=== PATIENT | male | born 1970 | race Caucasian/White ===

== ENCOUNTER → 2017-06-01 | Outpatient (CLI) | payer BC ==
[~2017-06-01] MED LIST: AMITRIPTYLINE H25 MG PO; AMLODIPINE-BEN1 EACH PO; CRESTOR20 MG PO; ULTRAM50 MG PO
--- NOTE | 2017-06-01 15:06 | Diagnostic Imaging Report ---
History: No injuries. Low back pain radiating to both legs Comparison studies: None Technique: Sagittal, coronal and axial T2 , sagittal T1 and IR, axial spin density oblique. Intravenous contrast: None Findings: Number of lumbar vertebral bodies:5 Alignment: Grade 1 anterolisthesis of L4 over L5 and L5 over S1.No scoliosis. Soft tissues: No T2 hyperintense inflammatory changes. Paraspinal muscles: Mild fatty infiltration of the lumbosacral junction. Lower thoracic cord:Normal in signal and morphology. The tip of the conus is at T12-L1. Cauda equina: No masses. No arachnoiditis. Surgical changes: Posterior the compression with bilateral laminectomies, intervertebral spacer and posterior fusion at L5-S1. Vertebrae: Normal in height and signal intensity. No compression fractures, infection or neoplasm. Degenerative changes: L1-L2: No abnormalities. L2-L3: No abnormalities. L3-L4: No abnormalities. L4-L5: Disc degeneration with loss of T2 signal. Diffuse disc bulge and moderate facet hypertrophy without canal stenosis and moderate to severe bilateral foraminal narrowing. L5-S1: Moderate bilateral facet hypertrophy with patent canal and moderate bilateral foraminal narrowing. Additional findings: None IMPRESSION: Laminectomy changes, intervertebral spacer and posterior fusion at L5-S1. Evaluation limited at this level secondary to blooming artifact Moderate to severe bilateral foraminal narrowing at L4-L5 secondary to diffuse bulge and moderate facet hypertrophy. Moderate bilateral foraminal narrowing at L5-S1 secondary to moderate facet hypertrophy. Patent canal Signed by: DR Mariusz Shi M.D. on 06/01/2017 3:02 PM
== END ==
LOC: MRI 12:35
PROVIDERS: ATTEND Internal Medicine
DX: M54.16 Radiculopathy, lumbar region (principal)
CPT/HCPCS: 72148

== ENCOUNTER → 2017-06-28 | Outpatient (CLI) | payer BC ==
--- NOTE | 2017-06-28 18:50 | Diagnostic Imaging Report ---
PROCEDURE:L-SPINE AP AND LAT WITH FLEX AND EXT. COMPARISON:Patients [facility], CT, CT LUMBAR SPINE WO, 06/28/2017, 16:22. INDICATIONS:LUMBAR SPONDYLOLISTHESIS FINDINGS: There are 5 lumbar-type vertebral bodies. Status post posterior fusion of L5-S1 with bilateral interpedicular screws and intervening extension rods an intervertebral disc spacer. Orthopedic hardware is intact. Apparent grade 1 anterolisthesis of L4 on L5, which does not change in flexion and extension views (which is not clearly seen on CT performed same date). No lytic or blastic lesions. L5 laminectomy CONCLUSION: Status post posterior fusion L5-S1 with intact hardware. No change in alignment during flexion and extension views. Ky Ragland M.D. Dictated by: Ky Ragland M.D. on 06/28/2017 at 18:50 Electronically approved by: Ky Ragland M.D. on 06/28/2017 at 18:50
--- NOTE | 2017-06-30 16:24 | Diagnostic Imaging Report ---
History: Low back pain Comparison studies: MRI 06/01/2017 Technique: Axial images were obtained through the lumbar spine from T12. Coronal and sagittal images reconstructed from the axial data. Intravenous contrast: None Findings: Number of non-rib bearing vertebral bodies: 5 Alignment: Grade 1 anterolisthesis L5 on S1 Soft tissues: No abnormalities. Paraspinal muscles: Unremarkable. Sacroiliac joints: No degenerative changes. Vertebrae: No fractures, infection or neoplasm. Degenerative changes: L1-L2: Mild loss of disc height. Stable mild symmetric bulging disc with less than 1 mm posterior mass effect. Osseous boundary of the foramen and spinal canal widely patent. L2-L3: No abnormalities. L3-L4: No abnormalities. L4-L5: Vacuum disc phenomena with loss of disc height. Symmetric bulging disc better visualized on MRI. 4 mm posterior mass effect. Osseous boundaries of spinal canal widely patent. Bilateral foramen with moderate narrowing. L5-S1: Postoperative changes are noted from a laminectomy and fusion. Hardware appears intact without evidence of loosening. Osseous contours of the foramen demonstrate mild narrowing, right greater than left. IMPRESSION: 1. Postoperative changes from L5 to S1 laminectomy and fusion without evidence of complication. Signed by: Dr. Chucky Garcia M.D. on 06/30/2017 4:21 PM
== END ==
LOC: CT 15:37
PROVIDERS: ATTEND Neurological Surgery
DX: M43.16 Spondylolisthesis, lumbar region (principal)
CPT/HCPCS: 72110; 72131

== ENCOUNTER → 2017-10-13 | Outpatient (CLI) | payer BC ==
--- NOTE | 2017-10-13 13:18 | Diagnostic Imaging Report ---
PROCEDURE:L-SPINE AP AND LAT WITH FLEX AND EXT. COMPARISON:Patients [facility], DX, SP LUM AP/LAT/FLEX/EXT MIN 4VW, 06/28/2017, 16:01. INDICATIONS:LUMBAR SPONDYLOLITHESIS FINDINGS: There are 5 lumbar-type vertebral bodies with S1 being a transitional vertebral body. The patient is status post posterior fusion at L5 and S1 with bilateral interpedicular screws and fixing rods. Disc spacers are also present. Lateral neutral, flexion and extension views show no evidence of movement or slippage. The hardware appears intact. CONCLUSION: Status post surgical changes without evidence of slippage or hardware failure. Mateus Dodge D.O. Dictated by: Mateus Dodge D.O. on 10/13/2017 at 13:23 Electronically approved by: Mateus Dodge D.O. on 10/13/2017 at 13:23
== END ==
LOC: RAD 09:31
PROVIDERS: ATTEND Neurological Surgery
DX: M43.16 Spondylolisthesis, lumbar region (principal); Z98.1 Arthrodesis status
CPT/HCPCS: 72110

== ENCOUNTER 2017-11-28 06:46 | Emergency (ER) | payer BC ==
[~2017-11-28] VITALS: Ht 175.3 cm; Wt 81.6 kg
--- NOTE | 2017-11-28 07:33 | Diagnostic Imaging Report ---
PROCEDURE:X-RAY RIGHT FOOT, COMPLETE COMPARISON:None. INDICATIONS:RIGHT GREAT TOE PAIN FINDINGS: There are no fractures, dislocations, lytic or blastic lesions. No bony erosions. The bones are well-mineralized. The soft-tissues are unremarkable. CONCLUSION: Normal right foot radiograph. Mateus Dodge D.O. Dictated by: Mateus Dodge D.O. on 11/28/2017 at 7:33 Electronically approved by: Mateus Dodge D.O. on 11/28/2017 at 7:33
[2017-11-28] MEDS ORDERED: COLCHICINE 0.6 MG TAB PO STA ×2 (07:50→08:43)
[2017-11-28 08:30] LABS: ANION GAP 13.3 mmol/L (8-16); BLOOD UREA NITROGEN 13 mg/dL (7-26); BUN/CREATININE RATIO 15 (6-25); CALCIUM 9.2 mg/dL (8.4-10.2); CARBON DIOXIDE 25 mmol/L (22-29); CHLORIDE 101 mmol/L (98-107); CREATININE, SERUM 0.89 mg/dL (0.72-1.25); EST GLOMERULAR FILTRATION RATE > 60 ML/MIN (60-); GLUCOSE 95 mg/dL (74-118); POTASSIUM 4.3 mmol/L (3.5-5.1); SODIUM 135 mmol/L (136-145)
--- OUTSIDE RECORDS SUMMARY | 2018-01-12 03:10 | XMS REPORT ---
Author Author [facility] Address Unknown Phone Unavailable Care Team Providers Care Grill Cook Name Role Phone KIM AMES Unavailable Unavailable JENNIFER SCHULER Unavailable Unavailable ADDIE DEUTSCH Unavailable Unavailable Problems This patient has no known problems. Allergies, Adverse Reactions, Alerts This patient has no known allergies or adverse reactions. Medications This patient has no known medications. Results Test Description Test Time Test Comments Text Results Atomic Results Result Comments FOOT RIGHT COMPLETE 2017-11-28 07:39:00 [place] [address] Patient Name: CRISTA MOREAU MR #: [id number] : 1970 Age/Sex: 47/M Req #: [id number] Adm Physician: Ordered by: KIM AMES MD Report #: [id number] Location: ER Room/Bed: _ Procedure: [id number] DX/FOOT RIGHT COMPLETE Exam Date: 11/28/17 Exam Time: 0705 REPORT STATUS: Signed PROCEDURE: X- RAY RIGHT FOOT, COMPLETE COMPARISON: None. INDICATIONS: RIGHT GREAT TOE PAIN FINDINGS: There are no fractures, dislocations, lytic or blastic lesions. No bony erosions. The bones are well-mineralized. The soft-tissues are unremarkable. CONCLUSION: Normal right foot radiograph. Iglesia Dodge D.O. Dictated by: Iglesia Dodge D.O. on 11/28/2017 at 7:33 Electronically approved by: Iglesia Dodge D.O. on 11/28/2017 at 7:33 Dictated By: IGLESIA DODGE DO 8 Transcribed By: QUETA on 11/28/17738 COPY TO: KIM AMES MD SP LUM AP/LAT/FLEX/EXT MIN 4VW 2017-10-13 13:23:00 [place] [address] Patient Name: RCISTA MOREAU MR #: [id number] : 1970 Age/Sex: 47/M Req #: [id number] [facility] Physician: Ordered by: JENNIFER SCHLUER MD Report #: [id number] Location: [facility] Room/Bed: Procedure: [id number] DX/SP LUM AP/LAT/FLEX/EXT MIN 4VW Exam Date : 10/13/17 Exam Time: 0950 REPORT STATUS: Signed PROCEDURE: L-SPINE AP AND LAT WITH FLEX AND EXT. COMPARISON: [facility], DX, SP LUM AP/LAT/FLEX/EXT MIN 4VW, 06/28/2017, 16: 01. INDICATIONS: LUMBAR SPONDYLOLITHESIS FINDINGS: There are 5 lumbar-type vertebral bodies with S1 being a transitional vertebral body. The patient is status post posterior fusion at L5 and S1 with bilateral interpedicular screws and fixing rods. Disc spacers are also present. Lateral neutral, flexion and extension views show no evidence of movement or slippage. The hardware appears intact. CONCLUSION: Status post surgical changes without evidence of slippage or hardware failure. Iglesia Dodge D.O. Dictated by: Iglesia Dodge D.O. on 10/13/2017 at 13:23 Electronically approved by: Iglesia Dodge D.O. on 10/13/2017 at 13:23 Dictated By: IGLESIA DODGE DO 1323 Transcribed By: QUETA on 10/13/17 1323 COPY TO: JENNIFER SCHULER MD SP LUM AP/LAT/FLEX/EXT MIN 4VW [place] [address] Patient Name: CRISTA MOREAU MR #: [id number] : 1970 Age/Sex: 47/M Req #: [id number] Adm Physician: Ordered by: JENNIFER SCHULER MD Report #: [id number] Location: CT Room/Bed: _ Procedure: [id number] DX/SP LUM AP/LAT/FLEX/EXT MIN 4VW Exam Date: Exam Time: 1601 REPORT STATUS: Signed PROCEDURE: L-SPINE AP AND LAT WITH FLEX AND EXT. COMPARISON: [facility], CT, CT LUMBAR SPINE WO, 06/28/2017, 16:22. INDICATIONS: LUMBAR SPONDYLOLISTHESIS FINDINGS: There are 5 lumbar-type vertebral bodies. Status post posterior fusion of L5-S1 with bilateral interpedicular screws and intervening extension rods an intervertebral disc spacer. Orthopedic hardware is intact. Apparent grade 1 anterolisthesis of L4 on L5, which does not change in flexion and extension views (which is not clearly seen on CT performed same date). No lytic or blastic lesions. L5 laminectomy CONCLUSION: Status post posterior fusion L5-S1 with intact hardware. No change in alignment during flexion and extension views. Hellen Ragland M.D. Dictated by: Hellen Ragland M.D. on 06/28 at 18:50 Electronically approved by: Hellen Ragland M.D. on at 18:50 Dictated By: HELELN RAGLAND MD 49 Transcribed By: QUETA on 06/28/171849 COPY TO: JENNIFER SCHULER MD CT LUMBAR SPINE WO [place] [address] Patient Name: CRISTA MOREAU MR #: [id number] : 1970 Age/Sex: 47/M Req #: [id number] [facility] Physician: Ordered by: JENNIFER SCHULER MD Report #: [id number] Location: CT Room/Bed: Procedure: [id number] CT/CT LUMBAR SPINE WO Exam Date: 06/28/17 Exam Time: 1625 REPORT STATUS: Signed History: Low back pain Comparison studies: MRI 06/01/2017 Technique: Axial images were obtained through the lumbar spine from T12. Coronal and sagittal images reconstructed from the axial data. Intravenous contrast: None Findings: Number of non-rib bearing vertebral bodies: 5 Alignment: Grade 1 anterolisthesis L5 on S1 Soft tissues: No abnormalities. Paraspinal muscles : Unremarkable. Sacroiliac joints: No degenerative changes. Vertebrae: No fractures, infection or neoplasm. Degenerative changes: L1-L2: Mild loss of disc height. Stable mild symmetric bulging disc with less than 1 mm posterior mass effect. Osseous boundary of the foramen and spinal canal widely patent. L2-L3: No abnormalities. L3-L4: No abnormalities. L4-L5: Vacuum disc phenomena with loss of disc height. Symmetric bulging disc better visualized on MRI. 4 mm posterior mass effect. Osseous boundaries of spinal canal widely patent. Bilateral foramen with moderate narrowing. L5-S1: Postoperative changes are noted from a laminectomy and fusion. Hardware appears intact without evidence of loosening. Osseous contours of the foramen demonstrate mild narrowing, right greater than left. IMPRESSION: 1. Postoperative changes from L5 to S1 laminectomy and fusion without evidence of complication. Signed by: Dr. Chucky Lind M.D. on 06/30/2017 4:21 PM Dictated By: CHUCKY LIND MD 20 Transcribed By: RANDY on 06/30/171620 COPY TO: JENNIFER SCHULER MD MRI SPINE LUMBAR WO [place] [address] Patient Name: CRISTA MOREAU MR #: [id number] : 1970 Age/Sex: 46/M Req #: [id number] Adm Physician: Ordered by: ADDIE DEUTSCH MD Report #: [id number] Location: MRI Room/Bed: Procedure: [id number] MRI/MRI SPINE LUMBAR WO Exam Date: Exam Time: REPORT STATUS: Signed History: No injuries. Low back pain radiating to both legs Comparison studies: None Technique: Sagittal, coronal and axial T2 , sagittal T1 and IR, axial spin density oblique. Intravenous contrast: None Findings: Number of lumbar vertebral bodies:5 Alignment: Grade 1 anterolisthesis of L4 over L5 and L5 over S1.No scoliosis. Soft tissues: No T2 hyperintense inflammatory changes. Paraspinal muscles: Mild fatty infiltration of the lumbosacral junction. Lower thoracic cord:Normal in signal and morphology. The tip of the conus is at T12-L1. Cauda equina: No masses. No arachnoiditis. Surgical changes: Posterior the compression with bilateral laminectomies, intervertebral spacer and posterior fusion at L5-S1. Vertebrae: Normal in height and signal intensity. No compression fractures, infection or neoplasm. Degenerative changes: L1-L2: No abnormalities. L2-L3: No abnormalities. L3 -L4: No abnormalities. L4-L5: Disc degeneration with loss of T2 signal. Diffuse disc bulge and moderate facet hypertrophy without canal stenosis and moderate to severe bilateral foraminal narrowing. L5-S1: Moderate bilateral facet hypertrophy with patent canal and moderate bilateral foraminal narrowing. Additional findings: None IMPRESSION: Laminectomy changes, intervertebral spacer and posterior fusion at L5-S1. Evaluation limited at this level secondary to blooming artifact Moderate to severe bilateral foraminal narrowing at L4-L5 secondary to diffuse bulge and moderate facet hypertrophy. Moderate bilateral foraminal narrowing at L5-S1 secondary to moderate facet hypertrophy. Patent canal Signed by: DR Mariusz Shi M.D. on 06/01/2017 3:02 PM Dictated By: MARIUSZ ACKERMAN MD 1503 Transcribed By: RANDY on 06/01/17 1502 COPY TO: ADDIE DEUTSCH MD
== END 2017-11-28 09:22 | disposition home or self-care (01) ==
LOC: ER 06:46
DX: M79.672 Pain in left foot (principal); M10.072 Idiopathic gout, left ankle and foot; R26.2 Difficulty in walking, not elsewhere classified; I10 Essential (primary) hypertension
CPT/HCPCS: 36415; 80048; 84550; 99283

== ENCOUNTER → 2018-04-18 | Outpatient (CLI) | payer BC ==
--- NOTE | 2018-04-19 08:45 | Diagnostic Imaging Report ---
Lumbar Spine Radiographs: 5 views including flexion-extension views HISTORY: Pain. Lumbar spondylolisthesis COMPARISON: Lumbar x-ray 10/13/2017. DISCUSSION: Some of the osseous structures are partially obscured by stool and bowel gas. There are five non-rib bearing lumbar vertebral bodies. Stable posterior fusion with transpedicular screws and interconnecting rods at L4-L5. Intervertebral disc prosthesis at L4-L5 and L5-S1. Stable grade 1 anterolisthesis of L5 on S1. Hemilaminectomy changes at L5. No displaced fracture or compression deformity is identified. Disc Spaces: Mild disc space narrowing at L4-5 and L5-S1. Facets: Mild multilevel facet arthrosis. IMPRESSION: Stable posterior fusion of L4-L5. Signed by: Dr. Tai Hernandez M.D. on 04/19/2018 8:41 AM
== END ==
LOC: RAD 16:11
PROVIDERS: ATTEND Neurological Surgery
DX: M43.16 Spondylolisthesis, lumbar region (principal); Z98.1 Arthrodesis status
CPT/HCPCS: 72110

== ENCOUNTER → 2020-02-12 | Outpatient (CLI) | payer BC ==
--- NOTE | 2020-02-12 15:47 | Diagnostic Imaging Report ---
Examination: MRI SPINE LUMBAR WO History: Back pain; ^SCIATICA RT SIDE Comparison studies: X-Ray lumbar spine dated 04/18/2018; CT lumbar spine 06/28/2017, 12/04/2012; MRI lumbar spine 06/01/2017, 12/25/2015. Technique: Sagittal, coronal and axial T2 , sagittal T1 and STIR; axial spin density oblique. Findings: Number of lumbar vertebral bodies: Five. Alignment: Normal lordosis. No scoliosis. Soft tissues: No T2 hyperintense inflammatory changes. Posterior paraspinal soft tissues and muscles: No abnormality. Lower thoracic cord: Normal in signal and morphology. The tip of the conus is at bottom of L1. Cauda equina: No masses. No arachnoiditis. Vertebrae: No fractures, infection or neoplasm. An unchanged hemangioma of the right aspect of L1 (6mm craniocaudal dimension). Degenerative changes: L1-L2 through L3-L4: No abnormalities. L4-L5: Diffuse disc bulge and bilateral facet arthrosis result in moderate bilateral neural foraminal narrowing. No canal stenosis. L5-S1: Grade I anterolisthesis with bilateral pedicle screws and posterior fixation. Uncovering of the disc and bilateral facet arthrosis result in mild bilateral neural foraminal narrowing. Prio decompressive laminectomies. Additional findings: None. IMPRESSION: No new abnormality from prior lumbar spine MRI dated 06/01/2017. Unchanged degenerative foraminal stenosis at L4-L5 and L5-S1. No canal stenosis. Prior bilateral pedicle screws and posterior fixation and decompressive laminectomy at L5-S1. Signed by: Dr. Maegan Galarza M.D. on 02/12/2020 3:44 PM
== END ==
LOC: MRI 12:30
PROVIDERS: ATTEND Internal Medicine
DX: M54.31 Sciatica, right side (principal)
CPT/HCPCS: 72148

== ENCOUNTER → 2020-11-07 | Outpatient (CLI) | payer OTHER | LOC: RAD 10:10 | PROVIDERS: ATTEND Internal Medicine | DX: M25.511 Pain in right shoulder (principal) ==

== ENCOUNTER 2021-01-29 07:00 | Outpatient (RCR) | payer OTHER | END 2021-02-08 | LOC: PT 07:00 | PROVIDERS: ATTEND Physician Assistant | DX: M24.9 Joint derangement, unspecified (principal); M25.511 Pain in right shoulder; M25.611 Stiffness of right shoulder, not elsewhere classified; M62.81 Muscle weakness (generalized) ==

== ENCOUNTER → 2021-05-11 | Day surgery (SDC) | payer BC ==
[~2021-05-11] MED LIST changes: +ACETAMINOPHEN 1000 MG/100 ML 100 ML IV ONE; +DEXAMETHASONE SOD PHOS INJ 4 MG/ML SDV ONE; +EPINEPHRINE 1 MG/ML 30ML VIAL ONE; +FENTANYL CITRATE/PF 100MCG/2 ML INJ ONE; +GLYCOPYRROLATE INJ 0.2 MG/ML VIAL ONE; +LIDOCAINE 2%/ EPINEPHRINE 20ML MDV ONE; +LIDOCAINE HCL 2% LOCAL INJ 5 ML SDV VIAL INJ ONE; +MIDAZOLAM HCL 2 MG/2 ML VIAL ONE; +NEOSTIGMINE 1 MG/ML 10ML VIAL ONE; +ONDANSETRON HCL INJ 2MG/ML 2ML 2 MG/ML VIAL ONE; +POVIDONE IODINE 0.05% 0.05 % ML PO ONE; +PROPOFOL IV EMULSION 10 MG/ML 20 ML VIAL ONE; +ROCURONIUM BROMIDE 10 MG/ML 5ML VIAL IV ONE; +ROPIVACAINE 0.5% 5 MG/ML 30 ML SDV ONE; +SEVOFLURANE INHAL SOLN 250 ML PEN BTL ONE
[2021-05-11 12:10] VITALS: BP 109/65
== END | disposition home or self-care (01) ==
LOC: OR 08:03
PROVIDERS: ATTEND Specialist
DX: S43.431A Superior glenoid labrum lesion of right shoulder, initial encounter (principal); M75.51 Bursitis of right shoulder; I10 Essential (primary) hypertension; X58.XXXA Exposure to other specified factors, initial encounter; Z01.810 Encounter for preprocedural cardiovascular examination; Z01.812 Encounter for preprocedural laboratory examination; Z20.822 Contact with and (suspected) exposure to COVID-19; Z79.899 Other long term (current) drug therapy; Z87.891 Personal history of nicotine dependence
CPT/HCPCS: 29807; 93005; C1713; J0131; J0690; J1100; J2001 ×2; J2250; J2405; J2704; J2710; J2795; J3010; U0002

== ENCOUNTER 2021-07-07 09:00 | Outpatient (RCR) | payer BC ==
[~2021-07-07 09:00] MED LIST changes: -ACETAMINOPHEN 1000 MG/100 ML 100 ML IV ONE; -DEXAMETHASONE SOD PHOS INJ 4 MG/ML SDV ONE; -EPINEPHRINE 1 MG/ML 30ML VIAL ONE; -FENTANYL CITRATE/PF 100MCG/2 ML INJ ONE; -GLYCOPYRROLATE INJ 0.2 MG/ML VIAL ONE; -LIDOCAINE 2%/ EPINEPHRINE 20ML MDV ONE; -LIDOCAINE HCL 2% LOCAL INJ 5 ML SDV VIAL INJ ONE; -MIDAZOLAM HCL 2 MG/2 ML VIAL ONE; -NEOSTIGMINE 1 MG/ML 10ML VIAL ONE; -ONDANSETRON HCL INJ 2MG/ML 2ML 2 MG/ML VIAL ONE; -POVIDONE IODINE 0.05% 0.05 % ML PO ONE; -PROPOFOL IV EMULSION 10 MG/ML 20 ML VIAL ONE; -ROCURONIUM BROMIDE 10 MG/ML 5ML VIAL IV ONE; -ROPIVACAINE 0.5% 5 MG/ML 30 ML SDV ONE; -SEVOFLURANE INHAL SOLN 250 ML PEN BTL ONE
== END 2021-07-09 ==
LOC: PT 09:00
PROVIDERS: ATTEND Physician Assistant
DX: Z47.89 Encounter for other orthopedic aftercare (principal); S43.431D Superior glenoid labrum lesion of right shoulder, subsequent encounter

== ENCOUNTER 2021-08-07 06:58 | Outpatient (RCR) | payer BC | END 2021-08-08 | LOC: PT 06:58 | PROVIDERS: ATTEND Physician Assistant | DX: Z47.89 Encounter for other orthopedic aftercare (principal); S43.431D Superior glenoid labrum lesion of right shoulder, subsequent encounter ==

== ENCOUNTER 2021-09-04 09:51 | Outpatient (RCR) | payer BC | END 2021-09-08 | LOC: PT 09:51 | PROVIDERS: ATTEND Physician Assistant | DX: Z47.89 Encounter for other orthopedic aftercare (principal); S43.431D Superior glenoid labrum lesion of right shoulder, subsequent encounter ==